=== PATIENT | female | born 1975 ===

== ENCOUNTER 2021-05-30 05:45 | Day surgery (SDC) | payer OTHER | END 2021-05-30 14:10 | disposition home or self-care (01) | LOC: CIR.AMB 05:45 | PROVIDERS: ATTEND Obstetrics & Gynecology | DX: N84.0 Polyp of corpus uteri (principal); N84.1 Polyp of cervix uteri; D25.0 Submucous leiomyoma of uterus; N80.0 Endometriosis of uterus; Z20.822 Contact with and (suspected) exposure to COVID-19 ==